=== PATIENT | male | born 1985 | race Caucasian/White ===

== ENCOUNTER 2017-06-01 11:59 | Emergency (ER) | payer MEDICAID, OTHER ==
[~2017-06-01] VITALS: Ht 180.3 cm; Wt 83.2 kg
[2017-06-01] MEDS ORDERED: CLON0.5T (12:08)
[2017-06-01] MEDS ORDERED: VENL150C43 (12:08)
[2017-06-01] MEDS ORDERED: QUET5TAB (12:08)
[2017-06-01] MEDS ORDERED: CLON0.5T PO (13:14)
[2017-06-01 14:02] VITALS: BP 138/84
== END 2017-06-01 14:02 | disposition home or self-care (01) ==
LOC: M ED 11:59
DX: F41.9 Anxiety disorder, unspecified (principal); F31.9 Bipolar disorder, unspecified; F90.9 Attention-deficit hyperactivity disorder, unspecified type; Z72.0 Tobacco use; Z79.899 Other long term (current) drug therapy

== ENCOUNTER 2023-09-25 23:18 | Emergency (ER) | payer MEDICAID, OTHER, SELFPAY ==
[~2023-09-25] VITALS: Ht 180.3 cm; Wt 81.8 kg
[~2023-09-25 23:18] MED LIST: CLON0.5T2; CLON0.5T2 PO; QUET50TA4; VENL150C43
[2023-09-26] MEDS ORDERED: ALPRAZolam 0.5 MG TAB PO ONE (00:30)
[2023-09-26 00:42] LABS: BASO # 0.1 10^3/uL (0.0-0.2); BASO % 0.3 % (0.0-1.0); EOS % 0.2 % (0.0-3.0); HEMATOCRIT 44.6 % (42.0-52.0); LYMPH # 1.4 10^3/uL (1.5-5.0); LYMPH % 7.6 % (24.0-44.0); MEAN CORPUSCULAR HEMOGLOBIN 31.3 pg (27.0-33.0); MEAN CORPUSCULAR HGB CONC 33.6 g/dl (32.0-36.5); MEAN CORPUSCULAR VOLUME 93.1 fl (80.0-96.0); MONO % 5.3 % (2.0-8.0); NEUTROPHILS # 15.6 10^3/uL (1.5-8.5); NEUTROPHILS % 86.3 % (36.0-66.0); PLATELET COUNT, AUTOMATED 346 10^3/uL (150-450); RED BLOOD COUNT 4.79 10^6/uL (4.30-6.10); WHITE BLOOD COUNT 18.1 10^3/uL (4.0-10.0)
[2023-09-26 00:54] LABS: INR 0.92; PROTHROMBIN TIME 12.1 SECONDS (12.5-14.5)
[2023-09-26 00:55] LABS: LIPASE 82 U/L (12-53); PARTIAL THROMBOPLASTIN TIME 21.6 SECONDS (24.8-34.2)
[2023-09-26 00:57] LABS: ALBUMIN 4.1 G/DL (3.2-5.2); ALKALINE PHOSPHATASE 68 U/L (46-116); ALT/SGPT 22 U/L (7.0-40); AST/SGOT 24 U/L (<34); BILIRUBIN,DIRECT < 0.1 MG/DL (<0.4); BILIRUBIN,TOTAL 0.3 MG/DL (0.3-1.2); BLOOD UREA NITROGEN 18 MG/DL (9-23); CALCIUM LEVEL 9.6 MG/DL (8.5-10.1); CARBON DIOXIDE LEVEL 25 MMOL/L (20-31); CHLORIDE LEVEL 103 MMOL/L (98-107); CREATININE FOR GFR 0.81 MG/DL (0.70-1.30); GLOMERULAR FILTRATION RATE > 60.0 (>60); GLUCOSE, FASTING 119 MG/DL (60-100); POTASSIUM SERUM 3.5 MMOL/L (3.5-5.1); SODIUM LEVEL 139 MMOL/L (136-145); TOTAL PROTEIN 7.3 G/DL (5.7-8.2)
[2023-09-26] MEDS ORDERED: KETOROLAC 30 MG/ML 1ML VIAL IV ONE (01:30)
[2023-09-26] MEDS ORDERED: ISOVUE-370 76% 100ML VIAL As Ordered ONE (01:38)
[2023-09-26] MEDS ORDERED: VANC125C3 PO ×2 (03:43→04:22)
[2023-09-26] MEDS ORDERED: VANCOMYCIN ORAL SOL 250MG/5ML ORAL SYRINGE PO STA (03:46)
[2023-09-26 03:56] VITALS: BP 126/76; TEMP 99.1; O2SAT 96
== END 2023-09-26 04:29 | disposition home or self-care (01) ==
LOC: EDBD 23:18 → M ED 23:18
DX: A04.72 Enterocolitis due to Clostridium difficile, not specified as recurrent (principal); K85.90 Acute pancreatitis without necrosis or infection, unspecified; F41.9 Anxiety disorder, unspecified; F31.9 Bipolar disorder, unspecified; F17.200 Nicotine dependence, unspecified, uncomplicated; F12.90 Cannabis use, unspecified, uncomplicated; Z79.899 Other long term (current) drug therapy; Z91.010 Allergy to peanuts; Z91.018 Allergy to other foods
CPT/HCPCS: 71275; 74177; 80048; 80076; 81001; 83690; 85025; 85610; 85730; 86850; 86900; 86901; 87324; 87507; 93041; 96374; 99285; J1885; Q9967